=== PATIENT | male | born 1950 | race Caucasian/White ===

== ENCOUNTER 2016-08-26 03:58 | Emergency (ER) | payer MEDICARE ==
[2016-08-26 04:47] VITALS: BP 148/100
--- NOTE | 2016-08-26 05:04 | Emergency Department Report ---
ED Laceration HPI - HPI Chief Complaint: Wound/Laceration Stated Complaint: FACIAL LAC Time Seen by Provider: 08/26/16 04:59 Laceration Symptoms: Yes Pain (mild), No Foreign Body Sensation, No Numbness, No Weakness Other History: Patient presents with for evaluation of facial injury sustained at about 1 AM. Patient states that he bumped into a door accidentally. However, his states that he eats patient with light fixture made out of matter to prevent patient from laying his hands on hard ground daughter. Patient's states that the police has been notified and patient was given a citation. Patient denies LOC, memory loss, headache, change or blurring of his vision, nausea, vomiting, weakness or dizziness. Denies ringing in his ears. Patient is a diabetic that is not compliant with his medications. He states he was diagnosed with diabetes a year ago but doesn't take his medicines because he doesn't feel anything. Denies any complaints today. ED Review of Systems ROS: Stated complaint: FACIAL LAC Other details as noted in HPI Comment: All other systems reviewed and negative ED Past Medical Hx - Past Medical History Hx Hypertension: Yes Hx Diabetes: Yes Additional medical history: Back surgery - Surgical History Hx Appendectomy: Yes Additional Surgical History: Neck and back surgery - Social History Smoking Status: Current Every Day Smoker Substance Use Type: None - Medications Home Medications: Home Medications Medication Instructions Recorded Confirmed Last Taken Type metFORMIN [Glucophage] 500 mg PO BID #30 tablet 10/20/13 04/13/14 Unknown Rx oxyCODONE /ACETAMINOPHEN [Percocet 1 tab PO Q6HR PRN #14 tablet 10/20/13 Unknown Rx 5/325 mg] Insulin NPH/Regular [NovoLIN 70/30] 15 unit SUB-Q BIDDIAB 30 Days 10/24/1304/13 Unknown Rx Ibuprofen [Motrin] 600 mg PO Q8H PRN #15 tablet 08/26/16 Unknown Rx Laceration Physical Exam - Exam General: Vital signs noted. No distress. Alert and acting appropriately. Wound Length (cm): 1 (multiple tiny abrasions to left cheekbone. No surrounding edema. No deformity.) Laceration Location: Head Laceration Exam: Yes Normal Distal CMS, No Foreign Body, No Exposed Tendon, Vessel, or Nerve, No Tendon Injury ED Course Vital Signs 08/26/16 04:39 Temperature 97.6 F Pulse Rate 110 H Respiratory 18 Rate Blood Pressure 148/100 Blood Pressure 148/100 [Left] O2 Sat by Pulse 100 Oximetry ED Medical Decision Making - Medical Decision Making 66-year-old male with multiple abrasions to left zygomatic arch. Patient is stable and appears neurologically intact. He will be DC'd on one care instructions and oral Motrin when necessary pain (see prescription). Patient education, follow-up/referral, and return instructions provided. Patient strictly instructed to follow up with his PCP to manage his chronic diabetes. Diabetes education provided. he Verbalized understanding and is agreeable to plan Critical care attestation.: If time is entered above; I have spent that time in minutes in the direct care of this critically ill patient, excluding procedure time. ED Disposition Clinical Impression: Abrasion of face Qualifiers: Encounter type: initial encounter Qualified Code(s): S00.81XA - Abrasion of other part of head, initial encounter Disposition: DISCHARGED TO HOME OR SELFCARE Is pt being admited?: No Does the pt Need Aspirin: No Condition: Stable Instructions: Abrasion (ED), Acute Wound Care (ED) Additional Instructions: Follow instructions for care. Use medication as prescribed. Follow-up with your primary care doctor in 2-3 days for follow-up. As discussed, Follow-up regularly with your primary care doctor to manage her chronic diabetes. Return to the ED for new or worsening condition. Prescriptions: Ibuprofen [Motrin] 600 mg PO Q8H PRN #15 tablet PRN Reason: Pain Referrals: [facility] [Outside] - 2-3 Days
[2016-08-26] MEDS ORDERED: MOTRIN PO ONE (05:13)
[2016-08-26] MEDS ORDERED: TRIPLE ANTIBIOTIC TP ONE ×2 (05:14→05:15)
== END 2016-08-26 05:27 | disposition home or self-care (01) ==
LOC: ED 03:58
DX: S00.81XA Abrasion of other part of head, initial encounter (principal); I10 Essential (primary) hypertension; E11.9 Type 2 diabetes mellitus without complications; F17.200 Nicotine dependence, unspecified, uncomplicated; W22.8XXA Striking against or struck by other objects, initial encounter; Y93.9 Activity, unspecified; Y92.9 Unspecified place or not applicable; Y99.9 Unspecified external cause status
CPT/HCPCS: 99283; A6250